=== PATIENT | female | born 1965 | race Caucasian/White ===

== ENCOUNTER → 2023-09-30 09:01 | Outpatient (CLI) | payer OTHER, SELFPAY ==
--- NOTE | ~2023-09-30 | MR_ITS ---
MRI of the left ankle Clinical history: Disorder of bone Technique: Coronal proton-density and proton-density fat-sat images, axial proton-density and proton- density fat-sat images, and sagittal proton-density and proton-density fat-sat images were acquired. Following intravenous administration of 80 cc MultiHance gadolinium, T1-weighted fat-sat imaging was performed in the axial, coronal, and sagittal planes. Findings: Syndesmotic ligament are intact. Anterior and posterior talofibular ligaments, and calcaneo fibular ligament are intact. Deltoid ligament is intact. Medial flexor tendons, peroneal tendons, anterior extensor tendons, and Achilles tendon are intact. There is a benign nonossifying fibroma at the lateral aspect of the distal tibia. No other osseous ab normality seen. No osteochondral lesion of the talar dome. No suspicious bone marrow edema or periost eal reaction. Joint spaces are preserved. Plantar fascia is intact. Normal signal preserved in the sinus Tarsi. No soft tissue mass or fluid co llection evident. No abnormal postcontrast enhancement identified. 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 No other significant findings. Reviewed, dictated and finalized at location . 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 No other significant findings.
== END ==
DX: M89.8X6 Other specified disorders of bone, lower leg (principal)
CPT/HCPCS: 73723; A9577

== ENCOUNTER 2024-02-06 11:03 | Outpatient (CLI) | payer OTHER, SELFPAY ==
--- NOTE | ~2024-02-06 | XR_ITS ---
Lumbosacral Spine: AP and lateral views Clinical History: Pain Findings: The normal lordotic curve is maintained. There appear to be 6 lumbar type vertebral bodies. No fracture or subluxation seen. There is moderate to advanced facet arthropathy, especially the low er half of the lumbar spine.. The sacroiliac joints are normally outlined. Impression: Moderate to advanced facet arthropathy, particularly through the lower half of the lumbar spine. Reviewed, dictated and finalized at location M. Impression: Moderate to advanced facet arthropathy, particularly through the lower half of the lumbar spine.
== END 2024-02-06 11:04 ==
DX: M54.50 Low back pain, unspecified (principal); M12.88 Other specific arthropathies, not elsewhere classified, other specified site
CPT/HCPCS: 72100

== ENCOUNTER 2024-03-14 09:51 | Outpatient (CLI) | payer OTHER, SELFPAY ==
--- NOTE | ~2024-03-14 | MR_ITS ---
EXAMINATION: MR lumbar spine wo con DATE: 03/14/2024 11:40 INDICATION: Low back pain. Lumbar radiculopathy. TECHNIQUE: Magnetic resonance imaging (MRI) of the lumbar spine was performed without intravenous con trast. Sequences included sagittal T2-weighted FSE, sagittal T2-weighted FS FSE, sagittal T1-weighted FSE, and axial T2-weighted FSE. COMPARISON: None FINDINGS: There is 5 degrees dextrocurvature of thoracolumbar spine. Vertebral body heights are elijah l. There is mildly decreased disc height at L3-L4. The distal spinal cord signal intensity is normal. The conus medullaris is at L1. The following disc levels are specifically discussed: L1-L2: There is a right central extrusion. There is mild bilateral facet joint osteoarthritis. There is mild right neural foraminal stenosis. There is no central canal stenosis. L2-L3: The disc is bulging. There is mild bilateral facet joint osteoarthritis. There is mild left ne ural foraminal stenosis. There is no central canal stenosis. L3-L4: The disc is bulging and has an annular fissure. There is mild bilateral facet joint osteoarthr itis. There is mild bilateral neural foraminal stenosis. There is mild central canal stenosis. L4-L5: The disc is bulging. There is moderate bilateral facet joint osteoarthritis. There is mild rosalind ateral neural foraminal stenosis. There is mild central canal stenosis. L5-S1: The disc is bulging and has an annular fissure. There is severe bilateral facet joint osteoart hritis. There is mild bilateral neural foraminal stenosis. There is mild central canal stenosis. IMPRESSION: 1. Mild lumbar spondylosis. Reviewed, dictated and finalized at location E. IMPRESSION: 1. Mild lumbar spondylosis.
--- NOTE | ~2024-03-14 | MR_ITS ---
EXAMINATION: MR hip RT wo con DATE: 03/14/2024 11:33 INDICATION: Right hip pain. TECHNIQUE: Magnetic resonance imaging (MRI) of the right hip was performed without intravenous contra st. COMPARISON: None FINDINGS: Bones/cartilage: Bone alignment is normal. No fracture. The femoral head/neck morphologies are normal. Small field-of- view images of right hip demonstrate shallow partial-thickness cartilage loss. Labrum: Right acetabular labrum is intact. Fluid: There is no hip joint effusion. There is mild bilateral trochanteric bursitis. Soft tissues: The right gluteus minimus and gluteus medius tendons are normal. There is mild left gluteus minimus t endinopathy. Left gluteus medius tendon is normal. The hamstring tendon origins are normal. The iliop soas tendons are normal. IMPRESSION: 1. Mild right hip chondrosis. Reviewed, dictated and finalized at location E.
== END 2024-03-14 09:52 ==
DX: M94.251 Chondromalacia, right hip (principal); M43.06 Spondylolysis, lumbar region
CPT/HCPCS: 72148; 73721